=== PATIENT | female | born 1995 | race Caucasian/White ===

== ENCOUNTER 2019-02-09 08:16 | Emergency (ER) | payer OTHER ==
[~2019-02-09] VITALS: Ht 157.5 cm; Wt 90.0 kg
[~2019-02-09 08:16] MED LIST: CIPR500T4 PO; FAMO-96 PO; HYDR-4011 PO
[2019-02-09 08:20] VITALS: Ht 157.5 cm; Wt 90.0 kg
[2019-02-09] MEDS ORDERED: ONDANSETRON 4 MG INJ IV STA (08:34)
[2019-02-09] MEDS ORDERED: SOD CHLORIDE 0.9% 1,000 ML IV STA (08:34)
[2019-02-09] MEDS ORDERED: KETOROLAC 30 MG INJ IV STA (09:08)
[2019-02-09] MEDS ORDERED: morphine 4 MG/ML VIAL IV STA ×2 (09:58→10:25)
[2019-02-09] MEDS ORDERED: CEFTRIAXONE 1 GM/50 ML (PMX) 50 ML IVPB ONE (10:30)
[2019-02-09 11:29] VITALS: BP 134/75; PULSE 73; RESP 18
== END 2019-02-09 11:28 | disposition home or self-care (01) ==
LOC: FTE 08:16
DX: N39.0 Urinary tract infection, site not specified (principal); K80.20 Calculus of gallbladder without cholecystitis without obstruction
CPT/HCPCS: 36415; 76705; 80053; 81001; 81025; 83690; 85025; 96361; 96365; 96375; 96376; J0696; J1885; J2270; J2405; J7030; Z7502